=== PATIENT | female | born 1940 ===

== ENCOUNTER 2019-05-24 08:12 | Inpatient (IN) | payer MEDICARE, BC ==
[2019-05-24 11:56] VITALS: BP 146/96
[2019-05-24] MEDS ORDERED: Magnesium Hydroxide (MOM) 30 mL UDC PO PRN (12:01)
[2019-05-24] MEDS ORDERED: Maalox 30 mL Cup PO PRN (12:01)
[2019-05-24] MEDS: Escitalopram Oxalate 5 mg Tab PO SCH (12:29)
--- NOTE | 2019-05-24 19:38 | History & Physical ---
ADMIT DATE: 05/24/2019 CHIEF COMPLAINT: "I am depressed." HISTORY SOURCE: Reviewing the chart, talking to the nursing staff and patient. HISTORY OF PRESENT ILLNESS: A 78-year-old [place] female who resides in [facility] for last 35 years. She presented to Emergency Room at [facility] for evaluation of depression with suicidal ideation. The patient was medically cleared and now being advised to be admitted at [facility]. PAST MEDICAL HISTORY: Remarkable for: 1. Hyperlipidemia. 2. Degenerative joint disease. 3. Osteoporosis. 4. Questionable hypertension. MEDICATIONS: At the time of transfer has been reviewed and reconciled. ALLERGIES: The patient is not allergic to medications. SOCIAL HISTORY: She lives by herself. Her brother and sister live across her home. The patient has a remote history of smoking cigarette. No alcohol or drug use. 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 FAMILY MEDICAL HISTORY: Negative for diabetes, hypertension, kidney disease, liver disease. MENSTRUAL AND GYNECOLOGIC HISTORY: She is menopausal. 0, para 0. REVIEW OF SYSTEMS: The patient denies any headache, blurred vision, double vision, dysphagia, odynophagia, runny nose, stuffy nose, fever, chills, cough, chest pain, shortness of breath, palpitation, dizziness, nausea, vomiting, diarrhea, dysuria, hematuria, hematochezia, melena. No history of any seizure or syncopal episode. PHYSICAL EXAMINATION: GENERAL: The patient is alert, awake, oriented, lying in the bed without any acute distress. VITAL SIGNS: Temperature 98.6, pulse 74, respiratory rate 18, blood pressure 130/80. SKIN: Warm to touch. Adequate skin turgor. No petechia or purpura. HEENT: Normocephalic, atraumatic. Extraocular muscles are intact. Tongue was pink and coated. Poor dentition noted. No oral lesion, no exudate. No sinus tenderness. External auditory canal and tympanic membranes are well visualized. NECK: Supple, no JVD, no hepatojugular reflex, no lymphadenopathy, thyromegaly or carotid bruit. HEART: Both heart sounds are regular. No S3, no S4, no murmur. CHEST AND LUNGS: Equal in expansion, no expiratory wheezing. ABDOMEN: Soft, no guarding, no rigidity. Liver, spleen palpable. No palpable mass. EXTREMITIES: No edema, no cyanosis or clubbing. Pulses are +2. No calf tenderness noted. NEUROLOGIC: Alert, awake and oriented to time, place, person. 2-12 cranial nerves are intact. Power in upper or lower extremities 5-. Sensation is intact. Babinski's in both toes are going down. No cerebral sign. AVAILABLE DIAGNOSTIC DATA: Performed at [facility] has been reviewed. Total time reviewing the records approximately 5 minutes. CLINICAL IMPRESSION: 1. Psychotic disorder exacerbation. 2. Depression. 3. Hyperlipidemia. 4. Degenerative joint disease. 5. Osteoporosis. 6. Labile hypertension. PLAN: 1. Psychotic evaluation. Depression management deferred to psychiatrist. 2. Nutritional support. 3. Medication management. 4. Symptoms management. 5. Fall precautions. 6. The patient is medically stable at this time. We will continue to follow this patient during the stay in the hospital. The patient may require further evaluation and management as an outpatient for osteoporosis as well as health maintenance. Care plan has been reviewed and discussed. JOB# [id number]
--- NOTE | 2019-05-24 23:40 | Psychiatric Evaluation ---
DATE OF SERVICE: 05/24/2019 IDENTIFYING DATA: The patient is a 78-year-old woman living by herself. Information obtained by directly interviewing the patient as well as reviewing the admission papers and they are reliable. JUSTIFICATION OF HOSPITALIZATION: The patient is admitted on a 5150 as a danger to self. CHIEF COMPLAINT: "My qknwgoz-zz-dze was joking." HISTORY OF PRESENT ILLNESS: This is the first psychiatric hospitalization to [facility] for this patient who has a sister who is reported to have been in the hospital and the patient is reported to have been very much upset since the sister was sick in the hospital and she mentioned that she wanted to end her life. The patient's bihqsfs-mc-lji who lives next door has contacted the authorities and the patient has been placed on 5150 and admitted over here for stabilization. PAST PSYCHIATRIC HISTORY: The patient denies any prior psychiatric hospitalizations or treatments. MEDICAL HISTORY: Physical examination is requested to be done by Dr. Santana. SUBSTANCE ABUSE HISTORY: The patient denies use of any drugs or alcohol. STRENGTH AND ASSETS: The patient is motivated. MENTAL STATUS EXAMINATION: The patient is looking her stated age, superficially cooperative, lying down in the bed. The patient is operating on denial. The patient was noted to be coherent and relevant. Mood is noted to be depressed. Affect is constricted. Insight and judgment at this time are noted to be very much impaired. Impulse control is noted to be limited. Coping skills are noted to be limited. The patient is insisting that it is a mistake and her vvmifdo-yk-zds was joking. The patient has no insight into her illness. The patient is reported to ____ and has been denying any active hallucinations. No delusions are noted. The patient is alert and oriented to time, place, person and situation. DIAGNOSTIC IMPRESSION: AXIS I: Major depressive disorder, first episode in severe. AXIS II: None. AXIS III: As per Dr. Santana. IMMEDIATE TREATMENT PLAN: The patient is going to be observed on the inpatient unit, provided with supportive psychotherapy. The patient is going to be closely monitored. Once stabilized, the patient is going to be discharged to [facility] to be followed up on an outpatient basis. [facility]# [id number]
[2019-05-25] MEDS: Escitalopram Oxalate 5 mg Tab PO SCH (08:58)
[2019-05-25] MEDS: Multivitamin Tab PO SCH (08:58)
--- NOTE | 2019-05-25 22:26 | Progress Notes ---
DATE: 05/25/2019 SUBJECTIVE: The patient seen and examined. The patient is lying in the bed. The patient denies any chest pain, shortness of breath, palpitations, dizziness, nausea, vomiting, headache, seizure, syncopal episode. PHYSICAL EXAMINATION: VITAL SIGNS: Temperature 98, pulse is 64, respiratory rate 18, blood pressure 130/80. SKIN: Warm to touch. HEENT: No facial asymmetry. NECK: Supple, no JVD. HEART: Regular, no murmur. CHEST AND LUNGS: Equal in expansion, no expiratory wheezing. ABDOMEN: Soft. Bowel sounds present. No palpable mass. EXTREMITIES: No edema. NEUROLOGIC: Nonfocal. Medication admission record is reviewed. CLINICAL IMPRESSION: 1. Hyperlipidemia. 2. Depression. 3. Degenerative joint disease. 4. Osteoporosis. 5. Psychiatric disorder exacerbation. 6. Normal blood pressure. PLAN: 1. Psychiatric evaluation and management deferred to psychiatrist. 2. Antidepression. 3. Symptoms management. 4. Monitor blood pressure. 5. Fall precaution. 6. Nutritional support. 7. Statin. 8. The patient is medically stable. 9. Care plan reviewed and discussed with staff. JOB# [id number]
--- NOTE | 2019-05-26 00:03 | Progress Notes ---
DATE: 05/25/2019 PSYCHIATRIC PROGRESS NOTE SUBJECTIVE: Staff was spoken to. The patient is interviewed. Mood is noted to be depressed. Affect is constricted. The patient is isolative and withdrawn. Coping skills at this time are noted to be very poor. Sleep and appetite also noted to be very poor. The patient has been having difficult time to cope with the stress. The patient is still operating on denial stating that she has a lgprrgd-en-mtf that reacted unnecessarily and then got her over here. The patient has no insight into her illness at this time. ASSESSMENT: The patient is still depressed. PLAN: To continue the patient with the current medications and encouraged the patient to verbalize the concerns rather than to act out. [facility]# [id number]
[2019-05-26] MEDS: Multivitamin Tab PO SCH (08:26)
[2019-05-26] MEDS: Escitalopram Oxalate 5 mg Tab PO SCH (08:26)
--- NOTE | 2019-05-27 01:46 | Progress Notes ---
DATE: 05/26/2019 PSYCHIATRIC PROGRESS NOTE SUBJECTIVE: Staff was spoken to. The patient is interviewed. Mood is noted to be anxious. The patient is stating that she does not belong in here and lbyjsjx-lg-upq is going to keep an eye on her. The patient is stating that she has good family support and there is no reason for her to be in here. The patient is also stating it is misunderstood, she is not suicidal, she is not homicidal, and she is fully aware of what is going on with her. The patient wants to be discharged to her family, so that she can continue treatment on an outpatient basis. JOB# [id number]
[2019-05-27] MEDS: Multivitamin Tab PO SCH (08:43)
[2019-05-27] MEDS: Escitalopram Oxalate 5 mg Tab PO SCH (08:43)
--- NOTE | 2019-05-27 12:10 | Consultation ---
DATE OF CONSULTATION: 05/26/2019 REFERRING PHYSICIAN: Ford Mortensen M.D. TYPE OF CONSULTATION: Psychology. HISTORY OF PRESENT ILLNESS: The patient is a 78-year-old female. The following is by review of the medical record and by the patient's self-report. The patient states that she lives by herself. The patient is being admitted on a 5150 as a danger to self due to verbalizing self-harm statements. The patient states that her ujvoipa-xl-ggv was the one who called to have the patient admitted. The patient states that she was upset about her sister's medical condition as well as stating that if she had been as sick as her sister that she would probably end her own life. The patient states that her zvxdcrs-qd-laq took this the wrong way and therefore a 5150 was placed and she was admitted here for stabilization. PAST MEDICAL HISTORY: Please see history and physical by Dr. Santana. PAST PSYCHIATRIC HISTORY: The patient denies any history of prior psychiatric hospitalizations or treatment with a psychiatrist or psychologist or any type of therapy or counseling. SUBSTANCE ABUSE HISTORY: The patient denies any use of alcohol, tobacco, or illicit or recreational drugs. PSYCHOSOCIAL HISTORY: The patient states that she is and has no children. The patient states that her brother, Yung is involved in her care. The patient states she is a devout Jain. The patient did not go on to discuss occupational or educational history. She stated she would like to be discharged home. MENTAL STATUS EXAMINATION: The patient appears to be her stated age. The patient's attitude is cooperative. Eye contact is good. The patient's speech is responsive and also stated that she believes that a mistake has been made with respect to her admission here. The patient did admit that she said something about taking her life if she was in a critical medical condition. Thought process seems to be goal oriented as well as linear and logical. Mood is dysphoric. Affect is sullen. The patient denied any hallucinations or delusions. Impulse control is somewhat limited. The patient has been compliant with her care and staff direction. However, the patient is asking to be discharged. This is referred to the attending psychiatrist. The patient continued to insist that a mistake has been made and that she is not suicidal; however, the patient does have thoughts related to aging and and dying, but no active suicidal plan or intention. Impulse control is limited. The patient's memory seems to be intact for immediate, short term, and long-term dimensions. Sensorium is alert and oriented x 3. The patient did not participate in the interpretation of proverbs. Insight is poor. Judgement is compromised. DIAGNOSTIC IMPRESSION AXIS 1: Major depressive disorder, first episode, severe. AXIS II: None. AXIS III: Per Dr. Santana. TREATMENT PLAN: The patient has been seen by Dr. Mortensen for psychiatric evaluation and for the management of the patient's psychotropic medications. We will provide supportive psychotherapy to include cognitive behavioral therapy to reduce the patient's depression. We will provide coping strategies to adjust to aging and phase of life issues with respect to mortality and others around her in worsening medical condition. We will encourage the patient to clearly work on her communication with her brother along with respect to her own psychological as well as physical conditions so that understanding between the two is clear and is mutually supportive. We will review suicidal prevention interventions and encourage the patient to verbalize these thoughts in a safe environment to include a verbal contract for safety and no self-harm when discussing these thoughts with a family member and/or medical providers. Thank you, Dr. Mortensen for this consult and the opportunity to participate with you in this patient's care. JOB# [id number] MIHIR
--- NOTE | 2019-05-27 19:43 | Progress Notes ---
DATE: 05/27/2019 SUBJECTIVE: Staff was spoken to. The patient is interviewed. Mood is noted to be anxious. The patient is pacing on the unit. Insight and judgment at this time are noted to be improving. Impulse control seems to be fair. No side effects to the medications are noted. The patient has been able to tolerate the Lexapro. The patient is still talking about her sister, but suicidal ideation is resolving. ASSESSMENT: The patient is stabilizing. PLAN: To continue the patient with current medications and followup. JOB# [id number]
[2019-05-28] MEDS: Escitalopram Oxalate 5 mg Tab PO SCH (08:28)
[2019-05-28] MEDS: Multivitamin Tab PO SCH (08:28)
--- NOTE | 2019-05-29 09:49 | Discharge Summary ---
DATE OF DISCHARGE: 05/28/2019 IDENTIFYING DATA: The patient is a 78-year-old woman living by herself. JUSTIFICATION OF HOSPITALIZATION: The patient is admitted on 5150 as a danger to self. CHIEF COMPLAINT: "My wpljhfz-xu-yyj was joking." DIAGNOSES AT THE TIME OF ADMISSION: AXIS I: Major depressive disorder, first episode and severe. AXIS II: None. AXIS III: As per Dr. Santana. HISTORY OF PRESENT ILLNESS: Please refer to the 05/24/2019 dictation done by me. HOSPITAL COURSE AND RESPONSE TO TREATMENT: The patient has been observed on inpatient unit, provided with supportive psychotherapy. The patient had the physical examination done by Dr. Padron and is no major interventions were needed even with the review of the blood work. The patient has been placed on 5 mg of the Lexapro. The patient has been closely monitored. The patient's family has been very supportive. They want the patient to be continued treatment on an outpatient basis and then do not want the patient to be in the hospital. The patient is stating that her spvywrg-wg-zvn was joking since her sister was hospitalized that she is also going to be hurting herself. The patient, however, is stating that is not the case and she likes her life and wants to be continuing treatment on an outpatient basis and hence the patient was discharged on 05/29/2019 with recommendation that she is going to be following with me on an outpatient basis. MENTAL STATUS EXAMINATION: At the time of the discharge, the patient's mood is noted to be anxious. Affect is appropriate. Not suicidal or homicidal. Insight and judgment are noted to be fair. Impulse control is also noted to be fair. The patient has been willing to comply with the treatment. PROGNOSIS AT THE TIME OF DISCHARGE: Noted to be fair. DIAGNOSES AT THE TIME OF DISCHARGE: AXIS I: Major depressive disorder, first episode and moderate. AXIS II: None. AXIS III: None. AFTERCARE PLAN: The patient is discharged to her family for followup on outpatient basis. JOB# [id number]
--- NOTE | 2019-05-29 11:05 | Progress Notes ---
DATE: 05/28/2019 PSYCHOLOGY PROGRESS NOTE SUBJECTIVE: The patient is seen and is interviewed. The patient appears to be somewhat anxious and restless. The patient continued to ask when she was being discharged. This is deferred to the attending psychiatrist. The patient's impulsivity is diminishing according to the staff. The patient has been compliant with the medications. The patient denied any suicidal ideation, plan, or intention. The patient is still concerned about her sister's medical condition and seemed to focus on this exclusively. ASSESSMENT AND PLAN: The patient seems to be improving and stabilizing. The patient denied any suicidal ideation, plan, or intention. The patient responded to the psychotherapeutic interventions being given to reduce her depression. PLAN: We encouraged the patient to stay compliant with her medications as well as to follow up with a psychologist and/or a psychiatrist or some type of therapy to assist the patient in being able to cope with the patient's family members and the difficulties she is experiencing. We provided suicidal prevention. The patient was able to verbally contract for safety and no self-harm. The patient seems to be stabilizing and stated that she feels she is ready to be discharged. Staff reports she is most likely discharging today. No followup is indicated. The recommendations for continued care from a psychiatrist and psychologist of course are recommended. JOB# [id number] MIHIR
== END 2019-05-28 14:15 | disposition home or self-care (01) | DRG 881 ==
LOC: GERO 08:12
PROVIDERS: ADMIT Psychiatry & Neurology Psychiatry; ATTEND Psychiatry & Neurology Psychiatry
DX: F32.9 Major depressive disorder, single episode, unspecified (principal); F29 Unspecified psychosis not due to a substance or known physiological condition; E78.5 Hyperlipidemia, unspecified; M19.90 Unspecified osteoarthritis, unspecified site; M81.0 Age-related osteoporosis without current pathological fracture; R09.89 Other specified symptoms and signs involving the circulatory and respiratory systems; Z87.891 Personal history of nicotine dependence; Z88.8 Allergy status to other drugs, medicaments and biological substances
CPT/HCPCS: 82948-90; 83036-90; Z7610